=== PATIENT | female | born 1960 | race Asian ===

== ENCOUNTER 2020-10-21 11:57 | Emergency (ER) | payer SELFPAY ==
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
[2020-10-21] MEDS ORDERED: cefTRIAXone/NS 1 GM/50 ML 1 GM/50 ML BAG IV ONE (13:28)
[2020-10-21] MEDS ORDERED: SODIUM CHLORIDE 0.9% 1000 ML 1,000 ML IV ONE (13:28)
[2020-10-21] MEDS ORDERED: TETANUS,DIPH,PERTUSS(ACELL) VACCINE 0.5 ML SYRINGE IM ONE (13:28)
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
[2020-10-21 14:22] LABS: Hematocrit 34.9 % (30.3-42.9); Hemoglobin 11.4 gm/dl (10.1-14.3); Mean Corpuscular HGB Conc 33 % (30-34); Mean Corpuscular Volume 75 fl (79-97); Platelet Count 286 K/mm3 (140-440); Red Blood Count 4.64 M/mm3 (3.65-5.03); Red Cell Distribution Width 13.9 % (13.2-15.2)
[2020-10-21] MEDS ORDERED: oxyCODONE /ACETAMINOPHEN 5-325MG TAB PO ONE (14:23)
[2020-10-21 14:44] LABS: Alanine Aminotransferase 10 units/L (7-56); Albumin 3.5 g/dL (3.9-5); Blood Urea Nitrogen 16 mg/dL (7-17); Hemolysis Index 5
[2020-10-21 15:13] LABS: BUN/Creatinine Ratio 23
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
[2020-10-21 15:46] VITALS: BP 124/87
== END 2020-10-21 15:45 | disposition home or self-care (01) ==
LOC: ED 11:57
DX: T25.222A Burn of second degree of left foot, initial encounter (principal); X08.8XXA Exposure to other specified smoke, fire and flames, initial encounter; Y93.89 Activity, other specified; Y92.89 Other specified places as the place of occurrence of the external cause; Y99.8 Other external cause status
CPT/HCPCS: 16020; 36415; 73620; 80053; 82140; 85027; 90471; 90715; 96365; 99284; J0696; J7030